=== PATIENT | female | born 2000 | race Caucasian/White ===

== ENCOUNTER 2022-10-02 16:40 | Emergency (ER) | payer OTHER ==
[2022-10-02] VITALS (23 sets, daily range): BP systolic 99–135; BP diastolic 48–85
[2022-10-02 17:59] LABS: BASO% 0.2 % (0-3); EOS% 0.6 % (0-8); HEMATOCRIT 41.9 % (37.0-47.0); HEMOGLOBIN 14.4 g/dl (12.0-16.0); IMMATURE GRANULOCYTES 0.2 % (0.0-5.0); LYMPH% 37.1 % (15-41); MEAN CELL VOLUME 81.7 fL CALC (80.0-100.0); MEAN CORPUSCULAR HGB 28.1 pG CALC (26.0-32.0); MEAN CORPUSCULAR HGB CONC 34.4 g/dL CAL (32.0-36.0); MONO% 6.2 % (2-13); NEUT# 3.04 thou/uL (2.00-7.15); NEUT% 55.7 % (42-76); RED BLOOD COUNT 5.13 mill/uL (4.20-5.60); RED CELL DISTRI WIDTH 12.5 % (11.5-15.5)
[2022-10-02 18:27] LABS: ALKALINE PHOSPHATASE 82 u/l (38-126); ANION GAP 14 (6-22 (CALC)); BILIRUBIN, TOTAL 0.5 mg/dL (0.02-1.3); BUN 10 mg/dL (7-17); BUN/CREATININE RATIO 16 (12-20 (CALC)); CARBON DIOXIDE 20 mmol/l (22-30); CHLORIDE 110 mmol/l (95-108); CREATININE 0.6 mg/dL (0.5-1.0); GFR FOR AFR.AMER. > 60 ML/MIN (>=60 (CALC)); GFR OTHER RACES > 60 ML/MIN (>=60 (CALC)); POTASSIUM 3.2 mmol/l (3.5-5.1); SGOT/AST 41 u/l (14-36); SODIUM 141 mmol/l (137-146); TOTAL PROTEIN 8.2 g/dL (6.3-8.2)
[2022-10-02 21:16] LABS: URINE BILIRUBIN - DIPSTICK NEGATIVE (NEGATIVE); URINE BLOOD DIPSTICK NEGATIVE (NEGATIVE); URINE COLOR YELLOW; URINE GLUCOSE - DIPSTICK NEGATIVE (NEGATIVE); URINE KETONE 15 mg/dL (NEGATIVE); URINE LEUK ESTERASE NEGATIVE (NEGATIVE); URINE PROTEIN - DIPSTICK NEGATIVE (NEG-TRACE); URINE UROBILINOGEN - DIPSTICK 0.2 E.U./dL (0.2)
[2022-10-02 21:17] LABS: URINE NITRITE - DIPSTICK NEGATIVE (Negative)
[2022-10-02] MEDS ORDERED: NAPROXEN500 MG PO (22:40)
== END 2022-10-02 23:15 | disposition home or self-care (01) | DRG 552 ==
LOC: ED 16:40
PROVIDERS: Nurse Practitioner
DX: S13.9XXA Sprain of joints and ligaments of unspecified parts of neck, initial encounter (principal); F12.10 Cannabis abuse, uncomplicated; F41.9 Anxiety disorder, unspecified; V44.5XXA Car driver injured in collision with heavy transport vehicle or bus in traffic accident, initial encounter
CPT/HCPCS: J2060; Q9967